=== PATIENT | male | born 1965 | race Caucasian/White ===

== ENCOUNTER 2020-09-30 16:29 | Emergency (ER) | payer OTHER ==
[~2020-09-30] VITALS: Ht 182.9 cm; Wt 70.5 kg
[~2020-09-30 16:29] MED LIST: ACET500P23 PO; ALBU2.5V5 NEB; ALBU2.5V8 IH; CALC300T5 PO; CHOL5000 PO; DIPH25CA58 PO; DOCU-109 PO; DULO30CA2 PO; GABA600T7 PO; HYDR-2759 PO; MULT-471 PO; MULT18TA PO; NORT25CA3 PO; PANT20TA2 PO; PRAZ2CAP2 PO; PROM25TA10 PO; TIZA4TAB8 PO
[2020-09-30] MEDS ORDERED: IV NORMAL SALINE 1000ML BAG 1,000 ML IV ONE (16:45)
[2020-09-30] MEDS ORDERED: fentaNYL PF VIAL 100 MCG/2 ML VIAL IVP ONE (16:45)
[2020-09-30] MEDS ORDERED: ONDANSETRON PF 4 MG/2 ML VIAL. IVP ONE (16:45)
[2020-09-30] MEDS ORDERED: FAMOTIDINE 20 MG/2 ML VIAL IVP ONE (16:45)
[2020-09-30 17:20] LABS: BASO % 1 % (0-3); EOS % 1 % (0-3); HEMATOCRIT 43.1 % (39.0-53.0); LYMPH % 42 % (24-48); MEAN CORPUSCULAR HEMOGLOBIN 36 pg (25-35); MEAN CORPUSCULAR HGB CONC 35 g/dL (31-37); MEAN CORPUSCULAR VOLUME 105 fL (79-100); MONO # 0.5 x10^3/uL (0.0-1.1); MONO % 10 % (0-9); NEUT # 2.2 x10^3/uL (1.8-7.7); NEUT % 47 % (31-73); PLATELET COUNT 176 x10^3/uL (140-400); RED BLOOD COUNT 4.11 x10^6/uL (4.30-5.70); RED CELL DISTRIBUTION WIDTH 14.6 % (11.5-14.5); WHITE BLOOD COUNT 4.8 x10^3/uL (4.0-11.0)
[2020-09-30 17:26] LABS: CALCIUM 9.6 mg/dL (8.5-10.1); POTASSIUM 4.7 mmol/L (3.5-5.1)
[2020-09-30 17:31] LABS: MAGNESIUM 1.9 mg/dL (1.8-2.4); TOTAL BILIRUBIN 0.4 mg/dL (0.2-1.0); TOTAL PROTEIN 7.9 g/dL (6.4-8.2)
[2020-09-30] MEDS ORDERED: IOHEXOL 300 MG/ML 100ML VIAL. ONE (17:36)
[2020-09-30] MEDS ORDERED: IOHEXOL 300 MG/ML 100ML VIAL. IV ONE (17:45)
--- NOTE | 2020-09-30 18:19 | RAD ---
CT abdomen pelvis with contrast. HISTORY: Abdominal pain, nausea and vomiting CT abdomen pelvis was done using 75 mL Omnipaque 300 contrast. There is a calcified granuloma in the right lower lobe. There is peribronchial thickening in the lung bases. There is a bullous lesion in t he right middle lobe. There is no effusion. There are no confluent infiltrates. There is a small cyst s in the liver. No other liver lesion is noted. There is no calcified gallstone or gallbladder wall t hickening. Spleen is unremarkable except for granulomatous calcifications. Adrenal glands are normal. There is no pancreatic lesion noted. Pancreatic duct is upper normal in size. There is no mass or hy dronephrosis in the kidneys. There is no periaortic adenopathy. There is no bowel obstruction. Append ix is normal. There is not evidence of an diverticulitis. There is degenerative disc disease at L5-S1 in the lumbar spine. IMPRESSION: 1. No bowel obstruction. 2. Normal appendix. 3. No abdominal or pelvic mass or other acute finding. PQRS Compliance Statement: One or more of the following individualized dose reduction techniques were utilized for this examinat ion: 1. Automated exposure control 2. Adjustment of the mA and/or kV according to patient size 3. Use of iterative reconstruction technique Electronically signed by: Pola Smith MD (09/30/2020 6:16 PM) [facility]
[2020-09-30 18:34] LABS: % BANDS 6 % (0-9); % EOS 1 % (0-5); % LYMPHS 57 % (24-48); % MONOS 3 % (0-10); % SEGS 33 % (35-66)
[2020-09-30 18:35] LABS: PLT ESTIMATE ADEQUATE (ADEQUATE)
[2020-09-30 18:36] LABS: PLATELET CLUMP PRESENT
[2020-09-30 19:18] VITALS: BP 134/86
[2020-09-30] MEDS ORDERED: PROC10TA57 PO (19:21)
--- NOTE | 2020-09-30 19:22 | PHYS DOC ---
Past Medical History Past Medical History: No Pertinent History, COPD, GERD, Other Additional Past Medical Histor: neuropathy, myelodysplastic syndrome, Graft vs host disease Past Surgical History: No Surgical History Additional Past Surgical Histo: COLON CA AND RESECTION,BONE MARROW CANCER Smoking Status: Current Every Day Smoker Alcohol Use: None Drug Use: None General Adult EDM: Chief Complaint: NAUSEA/VOMITING/DIARRHEA HPI: HPI: Patient is a 55 year old male with history of COPD, acid reflux, colon cancer with resection, bone marrow cancer who presents to the ED today complaining of nausea, vomiting, diarrhea, symptoms for 3 days. Patient is complaining of a mild epigastric abdominal pain intermittently. Denies any fever. Denies any he matemesis or melena. Denies anything specifically exacerbating or relieving his pain Review of Systems: Review of Systems: Constitutional: Denies fever or chills. [] Eyes: Denies change in visual acuity. [] HENT: Denies nasal congestion or sore throat. [] Respiratory: Denies cough or shortness of breath. [] Cardiovascular: Denies chest pain or edema. [] GI: Reports epigastric pain with nausea vomiting and diarrhea : Denies dysuria. [] Musculoskeletal: Denies back pain or joint pain. [] Integument: Denies rash. [] Neurologic: Denies headache, focal weakness or sensory changes. [] Psychiatric: Denies depression or anxiety. [] Heart Score: C/O Chest Pain: N/A Risk Factors: Risk Factors: DM, Current or recent (<one month) smoker, HTN, HLP, family history of CAD, obesity. Risk Scores: Score 0 - 3: 2.5% MACE over next 6 weeks - Discharge Home Score 4 - 6: 20.3% MACE over next 6 weeks - Admit for Clinical Observation Score 7 - 10: 72.7% MACE over next 6 weeks - Early Invasive Strategies Current Medications: Current Medications Medications (Trade) Dose Ordered Sig/Aneesh Start Time Stop Time Status Last Admin Dose Admin Famotidine (Pepcid Vial) 20 mg 1X ONCE 09/30/20 16:45 09/30/20 16:49 DC 09/30/20 17:07 20 MG Fentanyl Citrate (Fentanyl 2ml Vial) 50 mcg 1X ONCE 09/30/20 16:45 09/30/20 16:49 DC 09/30/20 17:08 50 MCG Iohexol (Omnipaque 300 Mg/ml) 75 ml 1X ONCE 09/30/20 17:45 09/30/20 17:46 DC 09/30/20 17:51 75 ML Ondansetron HCl (Zofran) 4 mg 1X ONCE 09/30/20 16:45 09/30/20 16:49 DC 09/30/20 17:06 4 MG Sodium Chloride 1,000 ml @ 1,000 mls/hr 1X ONCE 09/30/20 16:45 09/30/20 17:44 DC 09/30/20 17:01 1,000 MLS/HR Allergies: Allergies: Allergies Coded Allergies Type Severity Reaction Last Updated Verified morphine Allergy Severe dizziness 08/05/20 Yes moxifloxacin Allergy Severe diarrhea,caused teeth to come out 08/05/20 Yes oxycodone Allergy Severe vomiting 08/05/20 Yes Physical Exam: PE: Constitutional: Well developed, well nourished, no acute distress, non-toxic appearance. [] HENT: Normocephalic, atraumatic, bilateral external ears normal, oropharynx moist, no oral exudates, nose normal. [] Eyes: PERRLA, EOMI, conjunctiva normal, no discharge. [] Neck: Normal range of motion, no tenderness, supple, no stridor. [] Cardiovascular:Heart rate regular rhythm, no murmur [] Lungs & Thorax: Bilateral breath sounds clear to auscultation [] Abdomen: Bowel sounds normal, soft, no tenderness, no masses, no pulsatile masses. [] Skin: Warm, dry, no erythema, no rash. [] Back: No tenderness, no CVA tenderness. [] Extremities: No tenderness, no cyanosis, no clubbing, ROM intact, no edema. [] Neurologic: Alert and oriented X 3, normal motor function, normal sensory function, no focal deficits noted. [] Psychologic: Affect normal, judgement normal, mood normal. [] Current Patient Data: Labs: Laboratory Tests Test 09/30/20 17:00 White Blood Count 4.8 x10^3/uL (4.0-11.0) Red Blood Count 4.11 x10^6/uL (4.30-5.70) L Hemoglobin 15.0 g/dL (13.0-17.5) Hematocrit 43.1 % (39.0-53.0) Mean Corpuscular Volume 105 fL (79-100) H Mean Corpuscular Hemoglobin 36 pg (25-35) H Mean Corpuscular Hemoglobin Concent 35 g/dL (31-37) Red Cell Distribution Width 14.6 % (11.5-14.5) H Platelet Count 176 x10^3/uL (140-400) Neutrophils (%) (Auto) 47 % (31-73) Lymphocytes (%) (Auto) 42 % (24-48) Monocytes (%) (Auto) 10 % (0-9) H Eosinophils (%) (Auto) 1 % (0-3) Basophils (%) (Auto) 1 % (0-3) Neutrophils # (Auto) 2.2 x10^3/uL (1.8-7.7) Lymphocytes # (Auto) 2.0 x10^3/uL (1.0-4.8) Monocytes # (Auto) 0.5 x10^3/uL (0.0-1.1) Eosinophils # (Auto) 0.0 x10^3/uL (0.0-0.7) Basophils # (Auto) 0.0 x10^3/uL (0.0-0.2) Segmented Neutrophils % 33 % (35-66) L Band Neutrophils % 6 % (0-9) Lymphocytes % 57 % (24-48) H Monocytes % 3 % (0-10) Eosinophils % 1 % (0-5) Platelet Estimate Adequate (ADEQUATE) Platelet Clumps, EDTA Present Large Platelets Present Sodium Level 139 mmol/L (136-145) Potassium Level 4.7 mmol/L (3.5-5.1) Chloride Level 101 mmol/L (98-107) Carbon Dioxide Level 21 mmol/L (21-32) Anion Gap 17 (6-14) H Blood Urea Nitrogen 23 mg/dL (8-26) Creatinine 1.0 mg/dL (0.7-1.3) Estimated GFR (Cockcroft-Gault) 77.0 BUN/Creatinine Ratio 23 (6-20) H Glucose Level 112 mg/dL (70-99) H Calcium Level 9.6 mg/dL (8.5-10.1) Magnesium Level 1.9 mg/dL (1.8-2.4) Total Bilirubin 0.4 mg/dL (0.2-1.0) Aspartate Amino Transferase (AST) 25 U/L (15-37) Alanine Aminotransferase (ALT) 26 U/L (16-63) Alkaline Phosphatase 80 U/L (46-116) Total Protein 7.9 g/dL (6.4-8.2) Albumin 4.0 g/dL (3.4-5.0) Albumin/Globulin Ratio 1.0 (1.0-1.7) Lipase 60 U/L (73-393) L Ethyl Alcohol Level < 10 mg/dL (0-10) Laboratory Tests 09/30/20 17:00 Laboratory Tests 09/30/20 17:00 Vital Signs: Vital Signs Date Time Temp Pulse Resp B/P (MAP) Pulse Ox O2 Delivery O2 Flow Rate FiO2 09/30/20 18:23 75 174/79 (110) 99 Room Air 09/30/20 16:36 98.0 18 98.0 EKG: EKG: [] Radiology/Procedures: Radiology/Procedures: []PROCEDURE: CT ABD PELV W/ IV CONTRST ONLY CT abdomen pelvis with contrast. HISTORY: Abdominal pain, nausea and vomiting CT abdomen pelvis was done using 75 mL Omnipaque 300 contrast. There is a calcified granuloma in the right lower lobe. There is peribronchial thickening in the lung bases. There is a bullous lesion in the right middle lobe. There is no effusion. There are no confluent infiltrates. There is a small cysts in the liver. No other liver lesion is noted. There is no calcified gallstone or gallbladder wall thickening. Spleen is unremarkable except for granulomatous calcifications. Adrenal glands are normal. There is no pancreatic lesion noted. Pancreatic duct is upper normal in size. There is no mass or hydronephrosis in the kidneys. There is no periaortic adenopathy. There is no bowel obstruction. Appendix is normal. There is not evidence of an diverticulitis. There is degenerative disc disease at L5-S1 in the lumbar spine. IMPRESSION: 1. No bowel obstruction. 2. Normal appendix. 3. No abdominal or pelvic mass or other acute finding. PQRS Compliance Statement: One or more of the following individualized dose reduction techniques were utilized for this examination: 1. Automated exposure control 2. Adjustment of the mA and/or kV according to patient size 3. Use of iterative reconstruction technique Electronically signed by: Pola Smith MD (09/30/2020 6:16 PM) [facility] DICTATED and SIGNED BY: POLA SMITH MD DATE: 09/30/20 [id number] 0 Course & Med Decision Making: Course & Med Decision Making Pertinent Labs and Imaging studies reviewed. (See chart for details) This a 55-year-old male patient presenting to the ED today complaining of nausea, vomiting, diarrhea, symptoms for 3 days as well as epigastric pain. Labs are negative for any acute findings, CT of the abdomen and pelvis was negative. Patient did not give us any urine per his choice. Discharge to home. Follow-up with primary care doctor and GI in a week if symptoms persist Dragon Disclaimer: Dragon Disclaimer: This electronic medical record was generated, in whole or in part, using a voice recognition dictation system. Departure Departure Impression: Primary Impression: Vomiting and diarrhea Additional Impression: Epigastric pain Disposition: HOME / SELF CARE / HOMELESS Condition: STABLE Referrals: GEORGIE BERGERON MD (PCP) follow up in one week JC MAHER MD follow up in one week Patient Instructions: Diarrhea, [id number], Nausea and Vomiting, [id number] Additional Instructions: You were evaluated in the emergency room for nausea vomiting and diarrhea. Your CAT scan of the abdomen and pelvis is negative for any acute findings, your lab work was negative for any acute findings. Please follow-up with your primary care doctor as well as the provided sound tester in a week if symptoms continue. Push fluids, maintain good and hygiene. Scripts Prochlorperazine Maleate (Compazine) 10 Mg Tablet 1 TAB PO Q6HRS for 7 Days, #28 TAB 0 Refills Prov: BAILEE EVANS APRN 09/30/20 BAILEE EVANS APRN Sep 30, 2020 19:21
== END 2020-09-30 19:30 | disposition home or self-care (01) ==
LOC: ER 16:29
DX: R11.2 Nausea with vomiting, unspecified (principal); R19.7 Diarrhea, unspecified; R10.13 Epigastric pain; J44.9 Chronic obstructive pulmonary disease, unspecified; K21.9 Gastro-esophageal reflux disease without esophagitis; F17.200 Nicotine dependence, unspecified, uncomplicated; Z85.038 Personal history of other malignant neoplasm of large intestine; Z88.1 Allergy status to other antibiotic agents; Z88.5 Allergy status to narcotic agent
CPT/HCPCS: 36415; 74177; 80053; 83690; 83735; 85007; 85025; 96361; 96374; 96375; 99285; G0480; J2405; J3010; J3490; J7030; Q9967